=== PATIENT | female | born 1995 | race Caucasian/White ===

== ENCOUNTER → 2018-12-03 | Outpatient (REF) | payer OTHER | LOC: M SFHCLERA 14:20 | PROVIDERS: ATTEND Physician Assistant | DX: J02.9 Acute pharyngitis, unspecified (principal) ==

== ENCOUNTER 2019-02-19 17:28 | Emergency (ER) | payer OTHER ==
[~2019-02-19] VITALS: Ht 167.6 cm; Wt 68.2 kg
[2019-02-19 17:28] VITALS: BP 129/71
== END 2019-02-19 18:14 | disposition left against medical advice (07) ==
LOC: M ED 17:28
DX: R10.9 Unspecified abdominal pain (principal); Z53.21 Procedure and treatment not carried out due to patient leaving prior to being seen by health care provider

== ENCOUNTER → 2020-03-25 | Outpatient (CLI) | payer OTHER ==
[~2020-03-25] MED LIST: IBUP200T45 PO
== END ==
LOC: M RAD 13:00
PROVIDERS: ATTEND Internal Medicine
DX: R51 Headache (principal)

== ENCOUNTER 2020-05-20 09:13 | Emergency (ER) | payer OTHER ==
[~2020-05-20] VITALS: Ht 167.6 cm; Wt 72.5 kg
[2020-05-20] MEDS ORDERED: IBUP200T45 PO (09:21)
[2020-05-20 11:13] LABS: BASO % 0.3 % (0.0-1.0); EOS # 0.1 10^3/uL (0.0-0.5); EOS % 1.1 % (0.0-3.0); HEMATOCRIT 40.7 % (36.0-47.0); HEMOGLOBIN 13.9 g/dl (12.0-15.5); LYMPH # 1.5 10^3/uL (1.5-5.0); LYMPH % 23.4 % (24.0-44.0); MEAN CORPUSCULAR HEMOGLOBIN 28.4 pg (27.0-33.0); MEAN CORPUSCULAR HGB CONC 34.2 g/dl (32.0-36.5); MEAN CORPUSCULAR VOLUME 83.2 fl (80.0-96.0); MONO # 0.5 10^3/uL (0.0-0.8); MONO % 7.2 % (0.0-5.0); NEUTROPHILS # 4.4 10^3/uL (1.5-8.5); NEUTROPHILS % 67.7 % (36.0-66.0); PLATELET COUNT, AUTOMATED 208 10^3/uL (150-450); RED BLOOD COUNT 4.89 10^6/uL (4.00-5.40); WHITE BLOOD COUNT 6.5 10^3/uL (4.0-10.0)
[2020-05-20] MEDS ORDERED: NS 1,000 ML IV ONE (11:15)
[2020-05-20] MEDS ORDERED: ONDANSETRON 4MG/2ML VIAL IV ONE (11:15)
[2020-05-20 11:24] LABS: INR 0.94; PROTHROMBIN TIME 12.8 SECONDS (12.5-14.3)
[2020-05-20 11:25] LABS: PARTIAL THROMBOPLASTIN TIME 26.8 SECONDS (24.2-38.5)
[2020-05-20 11:39] LABS: HCG, SERUM QUALITATIVE NEGATIVE (NEGATIVE)
[2020-05-20 11:40] LABS: ALT/SGPT 21 U/L (12-78); AMYLASE 54 U/L (25-115); BILIRUBIN,DIRECT 0.2 MG/DL (0.0-0.2); BILIRUBIN,TOTAL 0.8 MG/DL (0.2-1.0); BLOOD UREA NITROGEN 15 MG/DL (7-18); CALCIUM LEVEL 9.1 MG/DL (8.5-10.1); CARBON DIOXIDE LEVEL 29 MEQ/L (21-32); CHLORIDE LEVEL 106 MEQ/L (98-107); CREATININE FOR GFR 0.78 MG/DL (0.55-1.30); GLOMERULAR FILTRATION RATE > 60.0 (>60); GLUCOSE, FASTING 85 MG/DL (70-100); LIPASE 92 U/L (73-393); SODIUM LEVEL 140 MEQ/L (136-145); TOTAL PROTEIN 7.5 GM/DL (6.4-8.2)
--- NOTE | 2020-05-20 11:59 | REPVR ---
PROCEDURE INFORMATION: Exam: US Abdomen, Limited; Right Upper Quadrant Exam date and time: 05/20/2020 11:45 AM Age: 24 years old Clinical indication: Abdominal pain; Epigastric; Additional info: Right upper quadrant pain into epigastric TECHNIQUE: Imaging protocol: US abdomen. Real time ultrasound with image documentation. Limited exam focused on the right upper quadrant. COMPARISON: No relevant prior studies available. FINDINGS: Liver: Normal hepatic echotexture. No hepatic mass is imaged. Right liver craniocaudal span = 15.6 cm. Gallbladder: No abnormal gallbladder wall thickening. No abnormal gallbladder dilation. No pericholecystic fluid. No gallstones. Common bile duct: Common bile duct diameter = 0.3 cm. No intrahepatic or extrahepatic bile duct dilation is imaged. Pancreas: The pancreas is incompletely visualized. The visualized portions of the pancreas are unremarkable. Right kidney: Right kidney length = 11.5 cm. No right hydronephrosis. No right renal mass is imaged. No evident right renal calculus. Intraperitoneal space: No free intraperitoneal fluid is imaged. IMPRESSION: Normal sonographic examination of the abdominal right upper quadrant. Electronically signed by: Esdras Graves On 05/20/2020 11:59:31 AM
[2020-05-20 12:45] VITALS: BP 112/64
== END 2020-05-20 12:46 | disposition home or self-care (01) ==
LOC: M ED 09:13
DX: R19.7 Diarrhea, unspecified (principal); K29.70 Gastritis, unspecified, without bleeding
CPT/HCPCS: 76705; 80048; 80076; 81001; 82150; 83690; 84703; 85025; 85610; 85730; 87086; 96361; 96374; 99284; J2405